=== PATIENT | female | born 1975 | race Caucasian/White ===

== ENCOUNTER 2017-02-28 13:56 | Inpatient (IN) | payer OTHER ==
[~2017-02-28] VITALS: Ht 157.5 cm; Wt 76.2 kg
--- NOTE | ~2017-02-28 | PA ---
Unit #: [id number] #: [id number] Patient: MIKALA AZUL [id number] [facility] [address] [place] [address] [id number] I MR#: [id number] NAME: MIKALA AZUL. ROOM: [facility] Age: 41 Sex: F Admission Date: 02/28/2017 : 1975 Date of Assessment: 03/01/2017 Attending Physician: Marcell Chinchilla M.D. Admitting Physician: Marcell Chinchilla M.D. Primary Care Physician: Primary Care Physician No PSYCHIATRIC ASSESSMENT INFORMANTS The patient reliability, fair informant and chart reliability, good. CHIEF COMPLAINT Depression and suicidal ideation. HISTORY OF PRESENT ILLNESS Ms. Mikala Azul is a 41-year-old female, referred by outpatient therapist due to above reason. The patient reports that she works at [employer]. Currently, having marital discord, has a 14-year-old son. The patient reports that she has been for a long time. Described her marriage as loveless. The patient reported having suicidal thoughts, made two superficial cuts on her wrist. Feeling of hopelessness, worthlessness, sad, depressed, and anxious. Reported mood swings. Reports that she tried Zoloft in the past that made her more jittery and angry. The patient currently on no psychotropic medications. Denied any use of any drugs or alcohol. The patient reported history of mother committing suicide, diagnosed with bipolar mood disorder. The patient needing inpatient admission at this time for psychiatric stabilization. PAST PSYCHIATRIC HISTORY Remarkable for history of suicidal ideation in the past. History of outpatient treatment, followed by a therapist. FAMILY HISTORY AND SOCIAL HISTORY Remarkable for history of suicide completed in mother. Diagnosed with bipolar mood disorder. No history of abuse except marital discord. MEDICAL HISTORY Remarkable for history of kidney stones. Musculoskeletal; muscle strength and tone, no atrophy or abnormal movement. Gait normal. MEDICATION HISTORY None. ALLERGIES No known drug allergies. SUBSTANCE ABUSE HISTORY None. REVIEW OF SYSTEMS HEENT: Eyes, clear. Ears, nose, mouth, and throat; clear. Unit #: [id number] #: [id number] Patient: MIKALA AZUL CARDIOVASCULAR: Unremarkable. RESPIRATORY: Unremarkable. GI: Unremarkable. : Unremarkable. SKIN: Unremarkable. LYMPH NODE: Unremarkable. NEUROLOGIC: Unremarkable. ENDOCRINE: Unremarkable. HEMATOLOGIC: Unremarkable. ALLERGIC/IMMUNOLOGIC: Unremarkable. MUSCULOSKELETAL: Muscle strength and tone, no atrophy or abnormal movement. Gait normal. MENTAL STATUS EXAMINATION CONSTITUTIONAL: Measurement of vital signs; temperature 98.5, heart rate 80, respiratory rate 16, and blood pressure 107/76. Height 5 feet 2 inches and weight 168 pounds. GENERAL APPEARANCE: The patient dressed casually. The patient did not show any facial deformity. MUSCULOSKELETAL: Please see above. PSYCHIATRIC EXAMINATION Description of speech; regular rate, normal volume, normal articulation, coherent, and spontaneous. Description of thought process, goal directed. Description of association, intact. Description of abnormal psychotic thinking; the patient denied any hallucination or delusions, but mood lability and suicidal ideation. Description of the patient's judgment: Concerning everyday activity, poor. Social situation, poor. Concerning psychiatric condition, poor. Complete mental status examination; oriented in time, place, and person. Recent and remote memory, fair. Attention span and concentration, fair. Language, able to name object and repeat phrases. Fund of knowledge, aware of current event and passive vocabulary intact. Mood and affect, sad and dysphoric. Insight and judgment, fair to poor. ASSETS AND LIABILITIES Assets, the patient is articulate and able to take care of her ADL. Liability, history of depression and suicidal ideation. ADMITTING DIAGNOSIS Psychiatric: Bipolar mood disorder, not otherwise specified, F31.9. Secondary diagnosis: Deferred. Medical diagnosis: History of kidney stones. Stressors: Psychosocial stressor and marital discord. ASSESSMENT/PLAN 1. Advised to admit the patient on the inpatient unit. Provide safe, supportive, and structured environment. 2. Ordered labs; CBC, CMP, UA, and UDS. 3. Precaution for self-harm. 4. Recommending Abilify 5 mg at bedtime for mood symptom and mood stabilization. The patient to attend all the programing, group therapy, individual therapy, and medication management. We will continue to Unit #: [id number] #: [id number] Patient: MIKALA AZUL follow. If needed, consider further adjustment of medication with a plan to follow up in outpatient program. Treatment goal to attain euthymic mood, gain insight into her problem, and learn coping skills. ESTIMATED LENGTH OF STAY 3 to 5 days. Dictated by... Marcell Chinchilla M.D. HORACIO/ernie SCHWARTZ: 03/01/2017 16:57 TD: 03/01/2017 19:03 JOB #: [id number] PSYCHIATRIC ASSESSMENT Page 1 of 1 X Marcell Chinchilla MD PSYCHIATRIC ASSESSMENT
--- NOTE | ~2017-02-28 | PN ---
Unit #: [id number] #: [id number] Patient: MIKALA AZUL [id number] [facility] [address] [place] [address] [id number] MR#: [id number] NAME: MIKALA AZUL. ROOM: P258 Age: 41 Sex: F Admission Date: 02/28/2017 : 1975 Attending Physician: Marcell Chinchilla M.D. Admitting Physician: Marcell Chinchilla M.D. Primary Care Physician: Primary Care Physician Giselle BRAUN PROGRESS NOTES DATE OF SERVICE 03/01/2017 DISCUSSION Ms. iMkala Azul is a 41-year-old female seen on 03/01/2017. Patient interviewed, chart reviewed. Obtained information from nursing staff. Patient sad, dysphoric, flat affect, withdrawn. Vital signs 98.5, 88, 16, 107/76. Complete review of systems unremarkable. MENTAL STATUS EXAMINATION General appearance, patient dressed casually. Attention span and concentration fair. Oriented to time, place and person. Mood and affect labile. Speech monotone. Thought process concrete. Patient denied any thoughts of harming self or others but mood lability. Recent and remote memory fair. Insight and judgement fair to slightly impaired. DIAGNOSES Bipolar mood disorder NOS. ASSESSMENT/PLAN Advise to continue with Abilify. If needed consider further adjustment of medication. Patient will be seen by medical doctor for her kidney stone pain. Dictated by... Phillip George/carmelo TD: 03/03/2017 00:51 JOB #: [id number] [facility] PROGRESS NOTES Page 1 of 1 X Marcell Chinchilla MD X PROGRESS NOTE
--- NOTE | ~2017-02-28 | DS ---
Unit #: [id number] #: [id number] Patient: MATEO SWIFT [id number] [facility] [address] [place] [address] [id number] I MR#: [id number] NAME: MATEO SWIFT. ROOM: [facility]8 Age: 41 Sex: F Admission Date: 02/28/2017 : 1975 Discharge Date: 03/02/2017 Attending Physician: Marcell Chinchilla M.D. Primary Care Physician: Primary Care Physician No DISCHARGE SUMMARY REASON FOR ADMISSION Depression and suicidal ideation. DIAGNOSTIC STUDIES LABORATORY RESULTS: BUN 8 and alkaline phosphatase 31. WBC 10.7. test negative. Urine drug screen positive for opiate as the patient is on pain medication Percocet. UA was remarkable for 10 to 25 wbc, 2+ blood. HOSPITAL COURSE The patient was admitted to inpatient unit on 02/28/2017 and discharged on 03/02/2017. The patient was treated with group therapy, individual therapy, and medication management. The patient was responsive to treatment and showed improvement. Subsequently, the patient was discharged with a plan to follow up in outpatient program. DISCHARGE MEDICATIONS Abilify 5 mg at bedtime for mood stabilization. The patient was also followed by the medical doctor for her kidney stones. The patient has an appointment to follow up with the kidney specialist on Tuesday at 11. DISCHARGE DIAGNOSES Psychiatric: Bipolar mood disorder, not otherwise specified, F31.9. Secondary diagnosis: Deferred. Medical diagnosis: History of kidney stones. Stressors: Psychosocial stressors and marital discord. DISCHARGE INSTRUCTIONS The patient to follow up in outpatient clinic as per aids social worker. CONDITION ON DISCHARGE The patient was pleasant and cooperative. Denied any psychotic symptom or any suicidal ideation. PROGNOSIS Guarded. DIET AND ACTIVITY As tolerated. Unit #: [id number] #: [id number] Patient: MATEO SWIFT Dictated by... Phillip GeorgeC/ernie TD: 03/02/2017 17:52 JOB #: [id number] DISCHARGE SUMMARY Page 1 of 1 X Marcell Chinchilla MD X DISCHARGE SUMMARY
--- NOTE | ~2017-02-28 | HP ---
Unit #: [id number] #: [id number] Patient: MIKALA SWIFT [id number] [place] [address] [id number] I MR#: [id number] NAME: MIKALA SWIFT. ROOM: P258 Age: 41 Sex: F Admission Date: 02/28/2017 : 1975 Attending Physician: Marcell Chinchilla M.D. Admitting Physician: Marcell Chinchilla M.D. Primary Care Physician: Primary Care Physician No HISTORY AND PHYSICAL HISTORY OF PRESENT ILLNESS Mikala is a 41 year old admitted to [address] [place] [address] with depression verbalizing wanting to hurt herself. PAST MEDICAL HISTORY History of kidney stones. She was diagnosed three days ago with a stone. Her last stone was 11 years ago. PAST SURGICAL HISTORY 1. Tubal ligation. 2. T & A. ALLERGIES No known drug allergies. SOCIAL HISTORY She denies cigarettes, alcohol and illicit drug use. FAMILY HISTORY Medically noncontributory. REVIEW OF SYSTEMS CONSTITUTIONAL: No fever or chills. HEENT: Denies any sore throat, ear pain or runny nose. CARDIOVASCULAR: Denies chest pain, irregular heart rhythm or palpitations. CHEST: Denies shortness of breath or cough. No hemoptysis. GASTROINTESTINAL: Denies nausea, vomiting, diarrhea or chronic constipation. ENDOCRINE: Denies history of increased thirst or urination. No recent significant weight loss or gain. GENITOURINARY: Denies dysuria, frequency, or hematuria. SKIN: Denies any rashes. HEMATOLOGIC: Denies history of increased bleeding or bruising. MUSCULOSKELETAL: Denies any hot, swollen joints. No generalized muscle pain. NEUROLOGIC: Denies problems with vision or speech. No frequent, severe headaches. No numbness, tingling or weakness in any extremities. Denies loss of bladder or bowel control. CURRENT MEDICATIONS 1. Abilify 5 mg q h.s. 2. Milk of Magnesia p.r.n. Unit #: [id number] #: [id number] Patient: MIKALA SWIFT 3. Maalox p.r.n. 4. Tylenol p.r.n. 5. Flomax 0.4 mg q.h.s. 6. Percocet 5/325 one to two tabs q four hours p.r.n. PHYSICAL EXAMINATION GENERAL: Alert, well-nourished, in no apparent distress. VITAL SIGNS: Blood pressure 120/70, heart rate 80, respirations 16, temperature 98.6. WEIGHT: 168. HEIGHT: 5 foot 2 inches. SKIN: Warm and dry without rash or lesion. HEENT: Normocephalic. TMs not viewed. Oral and nasal passages clear. Conjunctivae clear. Pupils equal, round and reactive to light and accommodation. Extraocular movements intact. NECK: Supple without lymphadenopathy or thyromegaly. HEART: Regular rate and rhythm without murmur. LUNGS: Clear. ABDOMEN: Soft, nontender. : Not done. EXTREMITIES: No evidence of cyanosis, clubbing or edema. Moves all extremities without focal deficit. NEUROLOGICAL: Grossly within normal limits. Cranial Nerves: II: Visual noel are intact. III, IV AND : Extraocular movements are intact. Pupils are equal, round and reactive to light. V: Facial sensation is grossly normal. VII: Facial movements and expression are normal. VIII: Auditory acuity grossly intact. IX, X: Uvula is midline. Phonation is normal. XI: Patient shrugs shoulders and turns head normally. XII: Tongue protrudes in the midline. Sensory and Motor Function: Sensory and motor sensation is grossly normal. Motor: moves all extremities well. Coordination: Gait is normal. Deep Tendon Reflexes: Intact. IMPRESSION 1. Psychiatric admission. 2. History of kidney stones. 3. Last kidney stone diagnosed three days ago. she has an appointment with urologist in 7 to 10 days. RECOMMENDATIONS PSYCHIATRIC: Per psychiatrist. MEDICAL: I see no contraindications to participating in facility's activities. MEDICAL PROGNOSIS Good. MEDICAL CONDITION Stable. Dictated by... Unit #: [id number] #: [id number] Patient: MIKALA SWIFT Priscilla Mullins-Divina. for Phillip Masterson/carmelo TD: 03/02/2017 01:54 JOB #: [id number] HISTORY AND PHYSICAL Page 1 of 1 X Raeann Salazar X HISTORY AND PHYSICAL
[~2017-02-28 13:56] MED LIST: NUVARING V1 VAG.RING
[2017-03-01 09:56] LABS: BASOPHIL# 0.1 X10e3 (0-0.3); BASOPHIL% 0.8 % (0-2.5); EOSINOPHIL# 0.1 X10e3 (0-0.7); EOSINOPHIL% 1.2 % (0.0-7.0); HEMATOCRIT 39.5 % (35.0-45.0); HEMOGLOBIN 13.1 gm/dL (12.0-16.0); LYMPHOCYTE# 1.6 X10e3 (1.0-3.5); LYMPHOCYTE% 15.3 % (17.0-45.0); MEAN CORPUSCULAR HEMOGLOBIN 28.5 PG (28-34); MEAN CORPUSCULAR HGB CONC 33.1 g/dL (30-36); MONOCYTE# 0.5 X10e3 (0-1.0); MONOCYTE% 4.6 % (3.0-12.0); NEUTROPHIL# 8.4 X10e3 (1.5-7.1); NEUTROPHIL% 78.1 % (40-75); PLATELET COUNT 303 X10e3 (140-420); RED BLOOD COUNT 4.59 X10e (3.90-5.30); WHITE BLOOD COUNT 10.7 X10e3 (4.0-10.5)
[2017-03-01 10:12] LABS: DIFF IND NO
[2017-03-01 10:38] LABS: ALBUMIN SERUM 3.8 g/dL (3.5-5.0); BILIRUBIN,TOTAL 0.2 mg/dL (0.2-2.0); CALCIUM SERUM 9.1 mg/dL (8.4-10.2); CREATININE SERUM 0.8 mg/dL (0.6-1.4); PROTEIN TOTAL SERUM 6.4 g/dL (6.0-8.3)
[2017-03-01 12:56] LABS: URINE APPEARANCE TURBID; URINE BILIRUBIN NEG (NEG); URINE BLOOD 2+ (NEG); URINE COLOR YELLOW; URINE GLUCOSE NEG (NEG); URINE KETONE 1+ (NEG); URINE LEUKOCYTE ESTERASE 1+ (NEG); URINE NITRATE NEG (NEG); URINE PROTEIN NEG (NEG); URINE SPECIFIC GRAVITY 1.018 (1.003-1.035); URINE UROBILINOGEN 0.2 MG/DL (NEG)
[2017-03-01 13:06] LABS: URINE BACTERIA AUWI 3+ (NEGATIVE); URINE SQUAMOUS EPITHELIAL CELL MANY /[HPF]
[2017-03-01 13:32] LABS: AMPHETAMINE NEG (NEG); BARBITURATES NEG (NEG); BENZODIAZEPINES NEG (NEG); COCAINE NEG (NEG); MARIJUANA NEG (NEG); OPIATES POS (NEG); TRICYCLIC ANTIDEPRESSANTS NEG (NEG); U METHADONE NEG (NEG)
== END 2017-03-02 14:15 | disposition home or self-care (01) | DRG 885 ==
LOC: P2L 19:40
PROVIDERS: Psychiatry & Neurology Psychiatry
DX: F31.9 Bipolar disorder, unspecified (principal); R45.851 Suicidal ideations; Z87.442 Personal history of urinary calculi
CPT/HCPCS: 80053; 80307; 81003; 84703; 85025; J2550